=== PATIENT | male | born 1965 | race Hispanic/Latino ===

== ENCOUNTER 2024-02-23 10:45 | Emergency (ER) | payer OTHER ==
[~2024-02-23] VITALS: Ht 170.2 cm; Wt 70.3 kg
[2024-02-23] MEDS: KETOROLAC 30MG VIAL (30MG/ML) IM ONE (11:15)
[2024-02-23 11:19] VITALS: BP 153/90; PULSE 98; RESP 18; O2SAT 98
[2024-02-23] MEDS ORDERED: NAPR375T6 PO (11:51)
== END 2024-02-23 12:12 | disposition home or self-care (01) ==
LOC: EDH 10:45
DX: S90.111A Contusion of right great toe without damage to nail, initial encounter (principal); E78.00 Pure hypercholesterolemia, unspecified; I10 Essential (primary) hypertension; W23.0XXA Caught, crushed, jammed, or pinched between moving objects, initial encounter; Y93.89 Activity, other specified; Y92.89 Other specified places as the place of occurrence of the external cause; Y99.8 Other external cause status
CPT/HCPCS: 99283; 73660; 96372; J1885